=== PATIENT | male | born 1940 | race Caucasian/White ===

== ENCOUNTER 2018-05-25 12:29 | Inpatient (IN) | payer MEDICARE ==
[2018-05-25 13:30] LABS: #Lymphocytes 1.1 thou/uL (1.20-3.40); #Monocytes 0.7 thou/uL (0.11-0.59); #Neutrophils 7.8 thou/uL (1.40-6.50); %Basophils 0.2 % (0.0-1.0); %Eosinophils 0.3 % (0.0-10.0); %Lymphocytes 11.1 % (21.0-51.0); %Monocytes 7.1 % (0.0-10.0); %Neutrophils 81.3 % (42.0-75.0); Hemoglobin 13.1 g/dL (14.0-18.0); Mean Corpuscular HGB CONC 32.7 g/dL (32.0-36.0); Mean Corpuscular Volume 88.6 fL (78.0-98.0); Mean Platelet Volume 7.2 fL (7.4-10.4); Platelet Count 174 thou/uL (130-400); RBC Distribution Width 12.6 % (11.5-14.5); Red Blood Cell (RBC) Count 4.51 mill/uL (4.70-6.10); White Blood Cell (WBC) Count 9.6 thou/uL (4.8-10.8)
[2018-05-25 13:45] LABS: ALT (SGPT) 65 U/L (8-55); AST (SGOT) 29 U/L (5-34); Albumin 3.7 g/dL (3.4-4.8); Alkaline Phosphatase 119 U/L (40-150); Anion Gap 15 mmol/L (10-20); BUN (Urea Nitrogen) 30 mg/dL (8.4-25.7); Bilirubin, Total 1.3 mg/dL (0.2-1.2); CK (CPK) 46 U/L (30-200); Calc. Creatinine Clearance 0 mL/min (70-130); Calcium 8.5 mg/dL (7.8-10.44); Carbon Dioxide 19 mmol/L (23-31); Chloride 105 mmol/L (98-107); Estimated GFR-MDRD 50; Globulin 3.1 g/dL (2.4-3.5); Glucose 110 mg/dL (83-110); Potassium 4.4 mmol/L (3.5-5.1); Protein, Total 6.8 g/dL (5.8-8.1); Sodium 135 mmol/L (136-145)
[2018-05-25 13:49] LABS: CKMB 2.2 ng/mL (0-6.6); Troponin I 0.099 ng/mL (< 0.028)
[2018-05-25] MEDS ORDERED: Digoxin 0.5 MG/2 ML AMP ONE (14:10)
--- NOTE | 2018-05-25 14:21 | RAD ---
CHEST 1 VIEW: Date: 05/25/18 HISTORY: Chest pain. COMPARISON: Radiograph from 2006. FINDINGS: Heart size enlarged. No pneumothorax. No effusion. No acute osseous abnormality. Moderate degenerativ e changes of the shoulders. IMPRESSION: No acute intrathoracic abnormality. POS: LISBET
[2018-05-25 15:00] LABS: Magnesium 1.6 mg/dL (1.6-2.6); Phosphorus 3.8 mg/dL (2.3-4.7)
[2018-05-25] MEDS ORDERED: Diltiazem HCl 125 MG, Admixture Fee 1 EACH in Sodium Chloride 0.9% 100 ML IVPB SCH (15:30)
[2018-05-25] MEDS ORDERED: Ondansetron ODT 4 MG TAB PO PRN (15:37)
[2018-05-25] MEDS ORDERED: Nitroglycerin 0.4 MG TAB (25 Tab Bottle) PO PRN (15:37)
[2018-05-25] MEDS ORDERED: Senokot 8.6 MG TAB PO PRN (15:37)
[2018-05-25] MEDS ORDERED: Calcium Carbonate 500 MG ChewTAB PO PRN (15:37)
[2018-05-25] MEDS ORDERED: Ondansetron HCl/PF 4 MG/2 ML Vial IVP PRN (15:37)
[2018-05-25] MEDS ORDERED: Bisacodyl 10 MG SUPP PR PRN (15:37)
[2018-05-25] MEDS ORDERED: Acetaminophen 325 MG TAB PO PRN (15:37)
[2018-05-25] MEDS ORDERED: Enoxaparin Sodium 60 MG/0.6 ML SYRINGE ONE ×2 (15:39→15:45)
[2018-05-25] MEDS ORDERED: Sodium Chloride 0.9% 1,000 ML IV SCH (15:45)
[2018-05-25] MEDS ORDERED: Aspirin 325 MG TAB PO SCH (15:45)
--- NOTE | 2018-05-25 15:57 | HP ---
DATE OF ADMISSION: 05/25/2018 PRIMARY CARE PHYSICIAN: Mabel Tran M.D. PRIMARY EFFERVESCENT SALTS COMPOUNDER: None. CHIEF COMPLAINT: Generalized weakness with lightheadedness of 1 day duration. HISTORY OF PRESENT ILLNESS: Patient is a 78-year-old male with hypertension [facility] above complaints. Since yesterday, the patient has been feeling weak and dizzy. He is getting short of breath on mild exertion. The dizziness is mainly present when he stands up from the seated position. He denies any chest pain, palpitations, lightheadedness, dizziness, syncope or diaphoresis. Prior to the onset of the symptoms he was at baseline. No fever, chills, dysuria, hematuria, urgency, cough, shortness of breath, wheezing reported. His blood pressure per EMS was 91/64 after 250 mL normal saline bolus. His heart rate was 101 with r espiration of 18, and O2 saturation of 96% on room air in the ambulance. While in the emergency room, the patient developed atrial flutter with rapid ventricular response wit h heart rate in 130s. He received digoxin, 5 mg Cardizem with 500 mL of IV fluid. PAST MEDICAL HISTORY: 1. Hypertension. 2. Diabetes mellitus type 2. 3. Diabetic neuropathy. 4. Former smoker. PAST SURGICAL HISTORY: 1. Hernia repair. 2. Appendectomy. ALLERGIES: No known drug allergies. CURRENT HOME MEDICATIONS: The patient is unable to recall any of his home medications. According to pharmacy record, patient takes gabapentin 100 mg twice a day, lisinopril/HCTZ 10/12.5 daily. SOCIAL HISTORY: Patient currently lives alone at home. He ambulates with the help of his cane. He denies any history of falls. He is FULL CODE. The durable power of tax attorney is his nephew, Chito tom. He quit smoking many years ago and has approximately [id number] smoking history. He denie s any alcohol or drug use. FAMILY HISTORY: Negative for heart disease or malignancy. REVIEW OF SYSTEMS: The following complete review of systems was negative, unless otherwise mentioned in the HPI or below: Constitutional: Weight loss or gain, ability to conduct usual activities. Sk in: Rash, itching. Eyes: Double vision, pain. ENT/Mouth: Nose bleeding, neck stiffness, pain, te nderness. Cardiovascular: Palpitations, dyspnea on exertion, orthopnea. Respiratory: Shortness of breath, wheezing, cough, hemoptysis, fever or night sweats. Gastrointestinal: Poor appetite, abdom inal pain, heartburn, nausea, vomiting, constipation, or diarrhea. Genitourinary: Urgency, frequenc y, dysuria, nocturia. Musculoskeletal: Pain, swelling. Neurologic/Psychiatric: Anxiety, depressio n. Allergy/Immunologic: Skin rash, bleeding tendency. PHYSICAL EXAMINATION: VITAL SIGNS: In the emergency room showed a temperature 97.7 with pulse rate of 138, blood pressure 92/79, respiration of 18, O2 saturation 99% on room air. His lowest blood pressure was 84/68. GENERAL: A 78-year-old male appears elder than the stated age in no apparent distress, feels better after IV fluids. HEENT: Atraumatic, normocephalic. Sclerae are anicteric. Moist mucous membrane, no oral lesion. NECK: Supple, no JVD appreciated. No carotid bruit. LUNGS: Essentially clear to auscultation bilaterally with scattered bibasilar rales: No rhonchi or wheezing. No significant accessory muscle use. HEART: S1, S2 present, tachycardic, 2/6 systolic murmur over the mitral area. ABDOMEN: Soft, nontender, bowel sounds present. EXTREMITIES: No edema or calf tenderness. NEUROLOGIC: Grossly nonfocal, moves all four extremities. Power was 5/5 in all extremities. PERIPHERAL VASCULAR: Radial pulses palpable bilaterally. MUSCULOSKELETAL: No joint swelling or tenderness. PSYCHIATRIC: Alert, awake, oriented x3. SKIN: Warm and dry. LYMPH NODES: No palpable lymph nodes in the neck. LABORATORY AND X-RAY FINDINGS: CBC showed WBC 9.6 with hemoglobin 13.1, hematocrit 40, platelet coun t of 174. Chemistries showed sodium 135, potassium 4.4, chloride 105, bicarbonate 19, BUN 30, creati nine 1.39, glucose 110. Troponin of 0.099. BNP was 584. Magnesium, phosphorus, and lactic acid are in normal range. Chest x-ray by my review was negative for acute findings. EKG by my review showed atrial flutter wit h rapid ventricular response. IMPRESSION: 1. New onset atrial flutter with rapid ventricular response. 2. Weakness, dizziness, and exertional shortness of breath, probably secondary to #1. 3. Elevated BNP, rule out congestive heart failure. 4. Acute kidney injury on chronic kidney disease stage 2, probably secondary to hypotension. 5. Elevated troponins, probably secondary to demand ischemia. 6. Elevated total bilirubin, probably secondary to passive hepatic congestion. 7. Hypertension. 8. Diabetes mellitus type 2, diet controlled. 9. Mild metabolic acidosis, probably secondary to renal failure. 10. Hyponatremia. 11. Mild chronic normochromic normocytic anemia. PLAN: The patient will be monitored in the telemetry unit. He received a dose of digoxin. We will start him on low dose Cardizem drip. He also received 1 dose of Cardizem 5 mg IV push. We will star t him on anticoagulation. Risk not limited to life threatening bleeding from anticoagulation was dis cussed with the patient. He stated understanding. He ambulates with the help of the cane and denies any history of fall. No GI bleeding reported. We will consult Cardiology. Fall precautions. We w ill keep him n.p.o. past midnight. Plan of care was discussed with the patient in detail. He stated understanding. We will hold lisinopril/HCTZ. Resume gabapentin. We will start him on insulin slid ing scale.
[2018-05-25 16:27] VITALS: BMI 23.6
[2018-05-25 17:08] LABS: Troponin I 0.226 ng/mL (< 0.028)
[2018-05-25] MEDS: Enoxaparin Sodium 40 MG/0.4 ML SYRINGE SC SCH (17:13)
[2018-05-25] MEDS ORDERED: Digoxin 0.5 MG/2 ML AMP SLOW IVP SCH ×2 (18:15→23:59)
[2018-05-25 19:48] LABS: Troponin I 0.299 ng/mL (< 0.028)
[2018-05-25] MEDS: Famotidine 20 MG TAB PO SCH (21:18)
[2018-05-25] MEDS: Gabapentin 100 MG CAP PO SCH (21:18)
[2018-05-25] MEDS: Docusate 100 MG CAP PO SCH (21:26)
--- NOTE | 2018-05-26 00:47 | CON ---
DATE OF CONSULTATION: 05/25/2018 PRIMARY CARE PHYSICIAN: Mabel Tran MD PRIMARY ECOLOGIST: Mallika Juan MD REFERRING PHYSICIAN: Primitivo Rice MD REASON FOR CARDIOLOGY CONSULTATION: New onset of atrial flutter. HISTORY OF PRESENT ILLNESS: Mr. Lebron is a 78-year-old male with a significant history of hypertension, diabetes type 2, and diabetic neuropathy. This morning, when patient was outside, feeding his animal, he started feeling burning sensation all over his body and once he got inside the home, the symptoms improved. He did not have any cardiac-related symptoms during the episode; howev er, he was getting weaker with shortness of breath. He visited his nephew who happened to be his bret laughlin and his nephew called the EMS and he was transferred to the Emergency Department for further ev aluation and treatment. At the ER, the patient was found to have atrial fluttering with rapid ventri cular response with heart rate up to 130s with hypotension of 84/68. At this time, the patient is on diltiazem 2.5 mg an hour. The patient's heart rate is continuing to be atrial fluttering. Heart ra te of 75 with diltiazem 2.5 mg an hour with blood pressure 105/80. The patient continued to complain of weakness; however, he denies any burning sensation, dizziness, lightheadedness, near syncopal epi sode, or any other complaints at this moment. Prior to this admission, he never had a cardiac workup before. PAST MEDICAL HISTORY: 1. Hypertension. 2. Diabetes type 2. 3. Diabetic neuropathy. 4. Former smoker. He quit at the age of 25. PAST SURGICAL HISTORY: 1. Hernia repair. 2. Appendectomy. 3. Melanoma removed from left jehovah's witness in [place], [place]. ALLERGIES: No known drug allergies. HOME MEDICATIONS: Gabapentin 100 mg twice a day, potassium 10 mEq once a day, lisinopril/hydrochloro thiazide 10/12.5 one tablet once a day. FAMILY HISTORY: There is no significant cardiovascular history. SOCIAL HISTORY: The patient is a . The patient lives by himself. His nephew is his neighbor. He is an ex-smoker, quit at the age of 25. He denies ETOH or illicit drug abuse. REVIEW OF SYSTEMS: Twelve-point review of systems is negative, unless otherwise mentioned in HPI. H e denies any blood in the stool or urine. Denied constipation or diarrhea. He uses a cane for movem ent. He noticed intermittent mild edema to bilateral lower extremities. PHYSICAL EXAMINATION: VITAL SIGNS: Blood pressure 105/80; heart rate 75, atrial flutter; temperature 97.5; O2 sat 98% with room air; respiratory rate of 20. GENERAL: The patient is alert, oriented x4, not in acute distress. HEAD: Normocephalic, atraumatic. EYES: Extraocular muscle movement intact. ENT AND MOUTH: Oral and nasal mucosa are moist without lesion. NECK: Supple. No JVD. Normal range of motion. RESPIRATORY: Clear to auscultate bilaterally. No wheezing, rales, or rhonchi noted. CARDIOVASCULAR: Irregular. There are no S3 or S4. Carotid pulses are present without bruit or thri ll. Pulses are present in bilateral lower extremities except the left femoral arteries, which is 1+. No edema in the lower extremities. ABDOMEN: Soft, nontender to palpitation. Bowel sounds are present. EXTREMITIES: The patient is able to move all extremities; however, the patient's lower extremities a re very weak at this moment. SKIN: There is no skin rash, erythema, or laceration noted. PSYCHIATRIC: The patient is alert and oriented x4. LABORATORY DATA: WBC 9.6, hemoglobin 13.1, hematocrit 40, platelet 174. Sodium 135, potassium 4.4, BUN 30, creatinine 1.39. BNP is 583.9. Troponin is 0.099, 0.226. TSH is 1.1774. AST 29, ALT 65. The patient's chest x-ray revealed no acute intrathoracic abnormality. The patient's 12-lead EKG jameel ws atrial flutter. ASSESSMENT AND PLAN: 1. Atrial flutter with rapid ventricular response. The patient's heart rate is well controlled with diltiazem 2.5 mg per hour at this moment. The patient received 5 mg bolus of diltiazem in the ER pr ior to transfer to this floor. The patient's blood pressure is stable at this moment. We would like to continue current medication and we would like to order EP consult for atrial flutter management. 2. Elevated troponin level with possible demand ischemia from history of atrial flutter with rapid v entricular response. At this moment, the patient denied any cardiac complaints. We would like to co raul to monitor on the telemetry. 3. Chronic heart failure. The patient's BNP is slightly elevated today. Echocardiogram was ordered . The results are pending at this moment. The patient is stable with room air. There is no abdomin al distension or edema in the lower extremities. 4. Elevated creatinine level, possible from dehydration. We would like to continue to monitor. 5. History of hypertension. His blood pressure is stable at this moment with current medication. 6. Chronic back pain. Instructed to call for any help for movement. 7. History of diabetes type 2. Although, the patient has a history of diabetes type 2, the patient is not on any medication to control the patient's blood glucose. At this moment, the patient is stab le at this moment. We would like to defer to the primary care doctor. Thank you so much for allowing the Cardiology service to participate in this patient's care. We will follow along with patient care team and make further recommendations as appropriate.
--- NOTE | 2018-05-26 01:30 | CON ---
DATE OF CONSULTATION: 05/25/2018 CARDIOLOGY CONSULTATION INDICATION FOR CONSULTATION: This is a 78-year-old patient with new onset atrial fibrillation and flutter. HISTORY OF PRESENT ILLNESS: This is a very pleasant 78-year-old gentleman who has had no previous cardiac history that he is aware of, but does have a history of hypertension and diabetes, was out feeding his animals today, he felt somewhat diaphoretic and hot, he went back inside and was not feeling well. He cooled off and then had his nephew call 911. He was brought to the emergency room and was found to have atrial flutter with rapid ventricular response. He denied any chest pain. He has had no previous syncopal episodes and no previous history of palpitations of this degree. He was given IV diltiazem and 0.125 mg of digoxin in the emergency room. He still continues to have heart rate in the 130s and appears to be fibrillation and flutter. The emergency room evaluation on EKG showed atrial flutter, at this time appear to be somewhat more irregular. PAST MEDICAL HISTORY: Significant for an appendectomy. He has had abdominal hernia repair, which most likely was an incisional hernia after his appendectomy. He also has had some type of either brain cancer or bone cancer removed. He had the 6-hour surgery apparently done in [facility] and perhaps in the [facility], but he is uncertain whether or not it was actually his brain or the bones they are somewhat unusual. He does have a history also of hypertension and also diabetes, which he has been controlling by diet. SOCIAL HISTORY: He is a . He has 3 children with no heart disease. He stopped smoking in 1963, but over smoked for about 4 years. He has decreased activity. He denies alcohol use. FAMILY HISTORY: Noncontributory for anemia or early heart disease. ALLERGIES: None. MEDICATIONS: Prior to admission included lisinopril, potassium and either hydrochlorothiazide or Lasix. He was on some type of medicine he said for water pill. In the emergency room, he was given Lovenox, diltiazem and digoxin. REVIEW OF SYSTEMS: He wears glasses, has poor dentition, has some lower extremity swelling, which has been present for several years and has a history of peripheral neuropathy. Otherwise, 12-point review of systems is unremarkable except for what was noted in the history of present illness. PHYSICAL EXAMINATION: GENERAL: Reveals a well-developed, well-nourished, very pleasant gentleman. VITAL SIGNS: Blood pressure 125/82, heart rate is 131 beats per minute, severely tachycardic and is irregular. He is afebrile, respiratory rate is 20. HEENT: Shows head to be normocephalic and atraumatic. Carotid pulses are present without any bruits. CHEST: Clear to auscultation without rales, rhonchi or wheezing. CARDIOVASCULAR: Reveals a rapid rate, which appears to be irregular at this time. There were no gross murmurs noted. ABDOMEN: Soft and nontender. He has a well-healed midline incision after a hernia repair. There were no masses or tenderness noted. Femoral pulses are present. EXTREMITIES: Showed only mild lower extremity edema and ankle edema. Pedal pulses are present. NEUROLOGIC: He appears to be intact. IMAGING: His EKG from the emergency room as noted above shows atrial flutter with rapid ventricular response. LABORATORY DATA: His laboratory data shows a hemoglobin of 13.1, WBC is 9.6. His troponin I was 0.099, increased up to 0.226. His BNP was 586. His potassium was 4.4, sodium was 135. His blood sugar was 110, creatinine was 1.39. IMPRESSION: 1. Atrial flutter with rapid ventricular response, occasionally looks like atrial fibrillation, but most likely is atrial flutter. We will try to control the rate with IV diltiazem and IV digoxin and if he does not convert to sinus rhythm, he will need to be seen by the senior wealth advisor. We are uncertain as to exactly how long he has been in this irregular or rapid heart rate with the flutter, but he seems to have begun recently, at least he did not have any symptoms previous to this. He is not a very active person and pretty much stays at home and does not do much except go out and feed his animals when he needs to. We will also obtain an echocardiogram for evaluation of left atrial size and also left ventricular systolic function. 2. Hypertension. This is under good control at this time. It is actually in the low side, but it likely is due to the tachycardia. 3. Abnormal cardiac enzymes, which I suspect are due to the tachycardia associated with the atrial flutter. 4. History of diabetes, but appears to be well controlled by diet at this time. PLAN: Further care of the patient will be determined whether or not we are able to control the heart rate rather quickly and also the results of the echocardiogram. At some point in time, he may need to undergo stress testing, but there were no EKG changes noted that would indicate ischemia when he had the heart rate up to 130 beats per minute. MTDD
[2018-05-26] MEDS: Enoxaparin Sodium 40 MG/0.4 ML SYRINGE SC SCH (05:18)
[2018-05-26 06:27] LABS: Digoxin 1.87 ng/mL (0.8-2.0)
[2018-05-26 06:28] LABS: Anion Gap 17 mmol/L (10-20); BUN (Urea Nitrogen) 27 mg/dL (8.4-25.7); Calc. Creatinine Clearance 63 mL/min (70-130); Calcium 8.9 mg/dL (7.8-10.44); Carbon Dioxide 19 mmol/L (23-31); Chloride 105 mmol/L (98-107); Estimated GFR-MDRD 64; Glucose 88 mg/dL (83-110); Potassium 4.3 mmol/L (3.5-5.1); Sodium 137 mmol/L (136-145)
[2018-05-26 07:53] LABS: #Eosinphils 0.1 thou/uL (0.0-0.7); #Lymphocytes 1.8 thou/uL (1.20-3.40); #Monocytes 0.7 thou/uL (0.11-0.59); #Neutrophils 5.4 thou/uL (1.40-6.50); %Basophils 0.3 % (0.0-1.0); %Eosinophils 1.2 % (0.0-10.0); %Lymphocytes 22.5 % (21.0-51.0); %Monocytes 8.5 % (0.0-10.0); %Neutrophils 67.5 % (42.0-75.0); Hemoglobin 12.7 g/dL (14.0-18.0); Mean Corpuscular HGB CONC 32.7 g/dL (32.0-36.0); Mean Corpuscular Hemoglobin 28.5 pg (27.0-31.0); Mean Corpuscular Volume 87.2 fL (78.0-98.0); Mean Platelet Volume 7.3 fL (7.4-10.4); Platelet Count 174 thou/uL (130-400); RBC Distribution Width 12.4 % (11.5-14.5); Red Blood Cell (RBC) Count 4.46 mill/uL (4.70-6.10)
[2018-05-26] MEDS ORDERED: Digoxin 0.125 MG TAB PO SCH (09:00)
[2018-05-26] MEDS: Gabapentin 100 MG CAP PO SCH ×2 (10:43→20:32)
[2018-05-26] MEDS: Famotidine 20 MG TAB PO SCH ×2 (10:43→20:32)
[2018-05-26] MEDS: Docusate 100 MG CAP PO SCH ×2 (10:43→20:32)
[2018-05-26] MEDS: Multivit, Therapeutic 1 TAB PO SCH (10:43)
[2018-05-26] MEDS: Aspirin 325 MG TAB PO SCH (10:43)
[2018-05-26] MEDS: Digoxin 0.25 MG TAB PO SCH (10:44)
[2018-05-26] MEDS ORDERED: Iopamidol 370 76% 100 ML VIAL ONE (11:15)
[2018-05-26] MEDS ORDERED: Magnesium Sulfate 2 GM in Sodium Chloride 0.9% 100 ML IVPB SCH (12:15)
[2018-05-26] MEDS ORDERED: Amiodarone In Dextrose 200 ML IVPB SCH (12:15)
[2018-05-26] MEDS ORDERED: Sodium Chloride 0.9% 1,000 ML IV SCH (12:15)
[2018-05-26] MEDS ORDERED: Magnesium 2 GM/NS 0.9% 100 ML 2 GM in Premix Bag 1 BAG IVPB SCH (12:30)
[2018-05-26 12:38] LABS: Troponin I 0.273 ng/mL (< 0.028)
--- NOTE | 2018-05-26 12:39 | PDOC.CTH ---
<Stormy Horne - Last Filed: 05/26/18 12:36> Cardiology Progress Note - Subjective The pt seen and examined. During code green, the pt was alerted. After cardioversion, the pt's HR was converted back to SR/ST. - Objective Vital Signs Temp Pulse Pulse Pulse Pulse Resp BP 05/26/18 11:39 97.5 F L 84 20 05/26/18 11:20 80 121 H 115 H 136/70 05/26/18 10:44 76 05/26/18 07:54 97.5 F L 76 18 05/26/18 06:36 05/26/18 06:26 84 05/26/18 06:25 76 05/26/18 05:00 05/26/18 04:00 97.9 F 76 22 H BP BP BP BP BP BP Pulse Ox 05/26/18 11:39 103/61 92 L 05/26/18 11:20 93/61 112/71 05/26/18 10:44 05/26/18 07:54 97/62 94 L 05/26/18 06:36 95 05/26/18 06:26 90/59 L 05/26/18 06:25 83/64 L 05/26/18 05:00 79/60 L 90/59 L 83/64 L 05/26/18 04:00 77/55 L 93 L Weight 178 lb 9 oz 05/25/18 05/26/18 05/27/18 06:59 06:59 06:59 Intake Total 300 Balance 300 - Physical Examination General/Neuro: alert & oriented x3 Neck: no JVD present Lungs: CTA Heart: RRR (SR after dccv) Abdomen: soft Extremities: other: - Telemetry Telemetry Rhythm: After cardioversion, the pt's HR was converted back to SR/ST. - Labs Result Diagrams: 05/26/18 07:22 05/26/18 05:42 Troponin/CKMB CK-MB (CK-2) 2.2 ng/mL (0-6.6) 05/25/18 13:13 Troponin I 0.299 ng/mL (< 0.028) H 05/25/18 19:14 - Assessment/Plan 1. V tach with s/p DCCV on 05/26/18 - Cont. mildly hypotensive and receiving NS bolus. Cont. to monitor on tele. 2. Afib/Aflutter with RVR - plan for ablation; Lovenox 60mg subq BID. 3. HTN - stable * STAT Echo was done today for s/p V tach today. Review of Systems - Review of Systems Constitutional: reports: no symptoms reported EENTM: reports: no symptoms reported Respiratory: reports: no symptoms reported Cardiac (ROS): reports: no symptoms reported ABD/GI: reports: no symptoms reported : reports: no symptoms reported Musculoskeletal: reports: no symptoms reported <Urszula Juan - Last Filed: 05/26/18 17:35> Cardiology Progress Note - Objective Vital Signs Temp Pulse Pulse Pulse Pulse Pulse Pulse 05/26/18 16:00 97.7 F 05/26/18 11:49 135 H 106 H 103 H 05/26/18 11:39 97.5 F L 84 05/26/18 11:20 80 121 H 05/26/18 10:44 76 05/26/18 08:10 05/26/18 07:54 97.5 F L 76 05/26/18 06:36 05/26/18 06:26 84 05/26/18 06:25 76 Pulse Resp BP BP BP BP BP 05/26/18 16:00 05/26/18 11:49 63/40 L 82/67 L 82/58 L 05/26/18 11:39 20 05/26/18 11:20 115 H 136/70 93/61 05/26/18 10:44 05/26/18 08:10 05/26/18 07:54 18 05/26/18 06:36 05/26/18 06:26 05/26/18 06:25 BP BP BP Pulse Ox Pulse Ox 05/26/18 16:00 97 05/26/18 11:49 98 05/26/18 11:39 103/61 92 L 05/26/18 11:20 112/71 05/26/18 10:44 05/26/18 08:10 94 L 05/26/18 07:54 97/62 94 L 05/26/18 06:36 95 05/26/18 06:26 90/59 L 05/26/18 06:25 83/64 L Weight 178 lb 9 oz 05/25/18 05/26/18 05/27/18 06:59 06:59 06:59 Intake Total 300 191.6 Output Total 250 Balance 300 -58.4 - Labs Result Diagrams: 05/26/18 07:22 05/26/18 05:42 Troponin/CKMB CK-MB (CK-2) 2.2 ng/mL (0-6.6) 05/25/18 13:13 Troponin I 0.273 ng/mL (< 0.028) H 05/26/18 11:55 - Assessment/Plan pt. seen and eval. S/P Vtach and cardioversion today. Echo indicated severely dilated RV and RA. Nl. EF. Stat CTA indicated large pulmonary saddle embolus. Pt. transferred to CCU. prognosis is guarded. EP study will be put on hold. Further cardiac workup after treatment and stabilization og the massive PE.
--- NOTE | 2018-05-26 14:47 | CT ---
CT ANGIO OF CHEST PERFORMED WITH INTRAVENOUS CONTRAST ENHANCEMENT WITH 3D RECONSTRUCTIONS: 05/26/18 HISTORY: Patient severely short of breath. Code. The lungs are clear of any confluent infiltrative process. No pulmonary nodules or pleural effusions. The thoracic aorta is normal in caliber. There is a massive pulmonary embolus present. This is a saddle embolus and also has extensive embolus extending in both the upper and lower lobe pulmonary arteries. Pulmonary artery is slightly dilated at 3.4 cm. There is minimal bowing to the interventricular septum and some slight reflux into the IVC . The visualized liver parenchyma is normal. IMPRESSION: Massive saddle embolus. Findings telephoned to nurse Brit. In addition, Dr. Rice was informed of the se findings by Dr. Rehman.
[2018-05-26] MEDS ORDERED: Amiodarone HCl 150 MG, Admixture Fee 1 EACH in Dextrose 5% in Water 100 ML IVPB SCH (15:15)
[2018-05-26] MEDS: Amiodarone HCl 450 MG, Admixture Fee 1 EACH in Dextrose 5% in Water 250 ML IVPB SCH (15:28)
--- NOTE | 2018-05-26 18:42 | PRG ---
DATE OF SERVICE: 05/26/2018 This is an electrophysiology followup note for Neftaly Lebron REFERRING PHYSICIAN: Dr. Rice and Dr. Juan. SUBJECTIVE: Mr. Lebron seems to have done well by the morning. He actually converted back to sin us rhythm. His blood pressure and vital signs were stable mild overnight. Blood pressure decreased to the mid-70s were seen with diltiazem. Hence, the diltiazem drip had to be stopped in the morning. Later while on telemetry, he developed a wide complex tachycardia. Ramone rodriguez was called and hence ongoing hypertension, he emergently cardioverted back to sinus rhythm with a 50-joule shock. Subseq uently, no recurrent tachycardia was seen. A 2D echo was then evaluated and revealed a marked dilation of the right ventricle. This prompted a CT scan, which indeed revealed a saddle pulmonary embolism. He was transferred to the ICU. Currently, he remains in sinus rhythm. OBJECTIVE: VITAL SIGNS: 110/60, heart rate 80, respirations 12. The patient is afebrile. GENERAL: He is alert and oriented man, in no apparent distress. NECK: Supple. Jugular veins not distended. CHEST: Coarse without crackles. CARDIOVASCULAR: Heart sounds are regular to rate and rhythm. No murmur or gallop. ABDOMEN: Benign. Bowel sounds positive. EXTREMITIES: Lower extremities without edema, clubbing or cyanosis. DATABASE: The telemetry strips reviewed and EKGs as well. The morning EKG does reveal sinus rhythm with no significant ST-T changes. LABORATORY DATA: Reviewed. BNP of 1138. Troponin I 0.273, not markedly changed from before. White cell count is 8, hemoglobin 12.7, platelet count is 174. The CT scan reveals a massive saddle embol us, extensive emboli extending into the upper and lower pulmonary arteries. The telemetry strips again reviewed the episode of wide complex tachycardia, which initiated in sinus rhythm, not by PAC and a marked different morphology from baseline suggestive of possible ventricula r tachycardia. This rhythm was terminated by shock. The rates are about 120 beats per minute. ASSESSMENT AND PLAN: Mr. Lebron is a 78-year-old man with history of diabetes, hypertension, and some sort of hip surgery who presented with a newly found atrial flutter. Though, he developed hyper tension, sinus rhythm and also eventually developed a wide complex tachycardia consistent with ventricular tachycardia. A 2D echo and CT scan were suggestive of a massive right ventricular enlarg ement with compressing the left ventricular cavity and left atrium as well. CT scan also positive fo r large saddle embolus. We discussed the case with Dr. Rice as well as Dr. Candelaria, the chronic specialist. This gentlema n will need intervention regarding his large pulmonary embolism. Dr. Candelaria is planning tPA. We al so discussed the potential benefit from adequate suppression of his ventricular and atrial arrhythmia s. I think amiodarone is reasonable in this setting. For now, naturally ablation procedure. Plans will be canceled.
[2018-05-26] MEDS: Enoxaparin Sodium 80 MG/0.8 ML SYRINGE SC SCH (20:32)
--- NOTE | 2018-05-26 21:02 | CON ---
DATE OF CONSULTATION: 05/26/2018 SERVICE: Pulmonary Medicine. INTERVAL HISTORY: The patient is a 78-year-old white male with past medical history significant for atrial fibrillation/flutter. He was walking with physical therapy today when he had sudden onset of shortness of breath, hypoxic failure. He went into Vtach but spontaneously converted out of it, but then went into a sustained ventricular tachyarrhythmia. He did not require any chest compressions, but he did get one shock. He was loaded with amiodarone. He was subsequently moved to the ICU. Because of the abrupt change in his condition, he was appropriately sent down for a CT PE protocol, which demonstrated a pulmonary embolism with a massive clot burden, and right ventricular strain. The patient is currently comfortable. Denies any chest pain, nausea, vomiting, fevers or chills. Denies short of breath currently. He does not have any cough or any sputum production. Otherwise, we talked about possible code in the very near future. He suggested to me that if he dies he would be okay with it. He does not want any chest compressions, electricity, or intubation moving forward. He does understand that he has a treatable condition. That being said, he is not interested in very, very aggressive maneuvers. We talked about clot busting medications like TPA. We talked about the risks and benefits of having them including intracerebral hemorrhage, massive blood loss, which could result in . But after discussing the risks and benefits of these things, he has elected to proceed with the TPA. PAST MEDICAL HISTORY: 1. Type 2 diabetes mellitus. 2. Hypertension. 3. Diabetic neuropathy. 4. Atrial fibrillation/flutter. 5. Acute pulmonary embolism. PAST SURGICAL HISTORY: 1. Herniorrhaphy. 2. Appendectomy. ALLERGIES: No known drug allergies. MEDICATIONS: List of inpatient medications were reviewed. No updates were made. FAMILY HISTORY: Noncontributory. SOCIAL HISTORY: He has a previous history of smoking. He quit remotely. He denies any alcohol or illicit drugs. We have a conversation about code status. He is electing to be a DNI/DNR. REVIEW OF SYSTEMS: General, head, ears, eyes, nose, throat, cardiovascular, respiratory, GI, , musculoskeletal, neurologic, and skin is negative except mentioned in the HPI. PHYSICAL EXAMINATION: VITAL SIGNS: Afebrile, pulse 84, blood pressure 99/74, respirations 12, saturation 99% on 2 liters nasal cannula. GENERAL: The patient is awake and alert. No apparent distress. LUNGS: Decent air entry. There is no prolonged expiratory phase currently. There are no crackles present. HEART: Normal rate. Regular. ABDOMEN: Soft, nontender, nondistended. Bowel sounds are positive. MUSCULOSKELETAL: No cyanosis or clubbing. There is no pitting in the bilateral lower extremities. NEUROLOGIC: Grossly nonfocal. LABORATORY DATA: Basic metabolic profile is unremarkable. Liver function studies were previously unremarkable. BNP is up trending from 500-1100, troponin is gently down trending to 0.273. TSH falls within the normal limits. Magnesium and phosphorus are normal. Digoxin level is 1.8. Blood cultures x2 are unremarkable. IMAGING: CTA of the chest demonstrates evidence of minimal emphysematous changes. There is massive right-sided volume overload. The right ventricle and atrium is enlarged. There is significant contrast into the inferior vena cava. The left atrium appears to be underfilled. There is bowing of the septum from the right side of the heart into the left ventricle. I do not see any consolidating changes in the lungs. There is no significant mediastinal lymphadenopathy. ASSESSMENT: 1. Acute hypoxic respiratory failure. 2. Acute pulmonary embolism, submassive. 3. Ventricular tachycardia arrest, status post successful cardioversion without requirements of chest compression. 4. Acute right ventricular strain/failure. DISCUSSION AND PLAN: The patient got Lovenox at 5:00 this morning. We will hold his afternoon dose. We will start backup at 9:00 tonight. We will give him 2 hours infusion of TPA for his submassive pulmonary embolism. We did discuss the risk of pursuing a clot busting medication like TPA. He understands that he does have a risk of massive hemorrhage, or intracerebral hemorrhage, which could potentially catastrophic or cause . That being said, after a brief discussion about the risks and benefits of pursuing therapy , he is on board with taking that risk. At this point, he does not have any absolute contraindications to proceeding with TPA. His relative contraindication is his age. He remains in the ICU for now. 70 minutes have been devoted to this patient in various activities. I personally reviewed all imaging studies and laboratory data noted within this document. For fifty percent of this time, I was interacting with the patient at the bedside or coordinating care with the care team. For the remainder of the time I was immediately available to the patient in the hospital unit. ELIEZER
--- NOTE | 2018-05-26 22:32 | PDOC.PN ---
- Subjective Encounter Start Date: 05/26/18 Encounter Start Time: 13:00 Patient seen and examined for New onset A flutter. Code green called for Vent tachycardia.s/p CV with 50 J. in SR. - Objective Resuscitation Status: Resuscitation Status DNR:Do Not Resuscitate MAR Reviewed: Yes Vital Signs & Weight: Vital Signs (12 hours) Temp Pulse Pulse Pulse Pulse Pulse Pulse 05/26/18 19:00 98.6 F 05/26/18 16:00 97.7 F 05/26/18 11:49 135 H 106 H 103 H 05/26/18 11:39 97.5 F L 84 05/26/18 11:20 80 121 H 05/26/18 10:44 76 Pulse Resp BP BP BP BP BP 05/26/18 19:00 05/26/18 16:00 05/26/18 11:49 63/40 L 82/67 L 82/58 L 05/26/18 11:39 20 05/26/18 11:20 115 H 136/70 93/61 05/26/18 10:44 BP BP Pulse Ox Pulse Ox 05/26/18 19:00 05/26/18 16:00 97 05/26/18 11:49 98 05/26/18 11:39 103/61 92 L 05/26/18 11:20 112/71 05/26/18 10:44 Weight Weight 178 lb 9 oz Most Recent Monitor Data Heart Rate from ECG 65 NIBP 117/60 NIBP BP-Mean 79 Respiration from ECG 21 SpO2 97 I&O: 05/25/18 05/26/18 05/27/18 06:59 06:59 06:59 Intake Total 300 548.6 Output Total 1000 Balance 300 -451.4 Result Diagrams: 05/26/18 07:22 05/26/18 05:42 Additional Labs: Accuchecks 05/26/18 11:51 POC Glucose 110 EKG Reviewed by me: Yes (Tele SR) Phys Exam - Physical Examination Constitutional: NAD Neck: no JVD Respiratory: no wheezing, no rales, no rhonchi, clear to auscultation bilateral Cardiovascular: RRR, no rub No heaves/pulsations Gastrointestinal: soft, non-tender, no distention, positive bowel sounds Musculoskeletal: no edema Neurological: moves all 4 limbs Dx/Plan - Plan DVT proph w/SCDs IMPRESSION: 1. B/L PE with Rt sided strain 1. New onset atrial flutter with rapid ventricular response. 2. Ventricular tachycardia s/p CV 3. Gen weakness - multifactorial 4. Acute kidney injury on chronic kidney disease stage 2, probably secondary to hypotension. 5. Elevated troponins, probably secondary to demand ischemia. 6. Elevated total bilirubin, probably secondary to passive hepatic congestion. 7. Hypertension. 8. Diabetes mellitus type 2, diet controlled. 9. Mild metabolic acidosis, probably secondary to renal failure. 10. Hyponatremia. 11. Mild chronic normochromic normocytic anemia. 12. Hypomagnesemia PLAN: IV TPA Transfer to CCU Consult Critical care Resume Lovenox in AM AM labs Cardio/EP following Cont Digoxin 2 gm Mag Start Amiodarone IV NS bolus for hypotension B/L LE Doppler to r/o DVT Hold PT/OT Review of Systems - Review of Systems Respiratory: negative: Cough, Dry, Shortness of Breath, Hemoptysis, SOB with Excertion, Pleuritic Pain, Sputum, Wheezing Cardiovascular: negative: chest pain, palpitations, orthopnea, paroxysmal nocturnal dyspnea, edema, light headedness, other - Medications/Allergies Allergies/Adverse Reactions: Allergies Allergy/AdvReac Type Severity Reaction Status Date / Time No Known Drug Allergies Allergy Verified 05/25/18 16:35 Medications: Current Medications Acetaminophen (Tylenol) 650 mg PO Q4H PRN PRN Reason: Headache/Fever or Pain Aspirin (Aspirin) 325 mg PO DAILY [facility] Last Admin: 05/26/18 10:43 Dose: 325 mg Bisacodyl (Dulcolax) 10 mg NV Q24H PRN PRN Reason: Constipation Calcium Carbonate (Tums) 1,000 mg PO Q4H PRN PRN Reason: Heartburn or Indigestion Digoxin (Lanoxin) 0.25 mg PO QAM [facility] Last Admin: 05/26/18 10:44 Dose: Not Given Docusate Sodium (Colace) 100 mg PO BID [facility] Last Admin: 05/26/18 20:32 Dose: 100 mg Enoxaparin Sodium (Lovenox) 80 mg SC 0900,2100 [facility] Last Admin: 05/26/18 20:32 Dose: 80 mg Famotidine (Pepcid) 20 mg PO BID [facility] Last Admin: 05/26/18 20:32 Dose: 20 mg Gabapentin (Neurontin) 100 mg PO BID [facility] Last Admin: 05/26/18 20:32 Dose: 100 mg Amiodarone HCl 450 mg/Miscellaneous Medication 1 each/ Dextrose/Water 259 mls @ 0 mls/hr IVPB INF [facility]; Protocol Last Admin: 05/26/18 15:28 Dose: 259 mls Multivitamins (Theragran) 1 tab PO DAILY [facility] Last Admin: 05/26/18 10:43 Dose: 1 tab Nitroglycerin (Nitrostat) 0.4 mg PO Q5MIN PRN PRN Reason: Chest Pain Ondansetron HCl (Zofran Odt) 4 mg PO Q6H PRN PRN Reason: Nausea/Vomiting Ondansetron HCl (Zofran) 4 mg IVP Q6H PRN PRN Reason: Nausea/Vomiting Senna (Senokot) 2 tab PO HSPRN PRN PRN Reason: Constipation Sodium Chloride (Flush - Normal Saline) 10 ml IVF PRN PRN PRN Reason: Saline Flush
--- NOTE | 2018-05-26 23:54 | CON ---
DATE OF CONSULTATION: 05/25/2018 ELECTROPHYSIOLOGY CONSULTATION REPORT REFERRING PHYSICIAN: Dr. Rice and Dr. Juan. I am seeing Mr. Lebron at our [facility] telemetry floor as an electrophysiology consulta nt. His problems are: 1. Newly found atrial flutter with rapid ventricular rates. 2. Elevated BNP, possible congestive heart failure. 3. Elevated troponins, possibly secondary to demand ischemia. 4. Hepatic congestion, elevated LFTs and bilirubin. 5. Risk factors including hypertension and diabetes. ALLERGIES: None noted. MEDICATIONS AT HOME: Included gabapentin, lisinopril to a limited report. SUBJECTIVE: Mr. Lebron is somewhat of a poor historian. He is here with feeling dizzy, lighthead ed with minimal exertion. He has no chest pains, denies palpitations. Does not pass out. No fever, chills, or cough. No bleeding issues or stroke-like symptoms are documented. REVIEW OF SYSTEMS: The rest of 12-point system otherwise unremarkable. PAST SURGICAL HISTORY: Significant for appendectomy; abdominal hernia repair; surgery in the p ast, details unclear, back in 2003 and it was done in [place]; history of diabetes and hypertensi on, controlled by diet. SOCIAL HISTORY: He is a , has 3 children with no heart disease, stopped smoking in 1963, smok ed about 4 years. He is somewhat limited in his activity. Denies drug use. FAMILY HISTORY: Noncontributory. OBJECTIVE DATA: VITAL SIGNS: Blood pressure is 125/82, heart rate 131, respirations 20, temperature 97.5 degrees Fah renheit. GENERAL: He is alert and oriented man x3, in no apparent distress. NECK: Supple. Jugular veins not distended. CHEST: Coarse without crackles. CARDIOVASCULAR: Heart sounds are regular to rate and rhythm. No murmur or gallop. ABDOMEN: Benign. Bowel sounds positive. EXTREMITIES: Lower extremities without edema, clubbing or cyanosis. Pulses are adequate. MUSCULOSKELETAL: No joint swelling or deformities. SKIN: Without rash. DATABASE: The initial EKG reveals atrial flutter with rapid rates at 130 beats per minute. It appea rs to be typical isthmus-dependent in morphology. LABORATORY DATA: White cell count is 9.6, hemoglobin 13.1, platelet count is 174. Sodium 135, potas sium 4.4, BUN is 30, creatinine 1.39. AST and ALT are 29 and 65. The bilirubin is 1.3. Troponin wa s 0.099 initially, followed by 0.226, 0.299, and 0.273. The chest x-ray shows no acute intrathoracic abnormality. ASSESSMENT AND PLAN: Mr. Lebron is a 78-year-old man without much cardiac history that he can rem ember. He has presented with atrial flutter, which appears to be typical isthmus-dependent in morpho logy. Dr. Juan has already evaluated the patient and plans to do an echocardiogram to evaluate his c ardiac structures. Diltiazem initiated as well as digoxin for rate control. Anticoagulation would b e a reasonable to start with Lovenox, which was administered. I discussed the finding of atrial flutter with him. I detailed to him the mechanism of atrial flutte r and potential benefit from evaluating it. Cardioversion versus ablation options were discussed tow ards ablation procedure. If persisting atrial flutter, JANIYA prior to the ablation could be considered . he has not been on anticoagulation prior, we will obtain the 2D echo results though prior. Thank you again for allowing me to participate in the care of this patient.
[2018-05-27] MEDS: Amiodarone HCl 450 MG, Admixture Fee 1 EACH in Dextrose 5% in Water 250 ML IVPB SCH (00:30)
[2018-05-27] MEDS: Aspirin 325 MG TAB PO SCH (09:38)
[2018-05-27] MEDS: Famotidine 20 MG TAB PO SCH ×2 (09:39→19:57)
[2018-05-27] MEDS: Docusate 100 MG CAP PO SCH ×2 (09:39→19:58)
[2018-05-27] MEDS: Enoxaparin Sodium 80 MG/0.8 ML SYRINGE SC SCH ×2 (09:39→19:58)
[2018-05-27] MEDS: Digoxin 0.25 MG TAB PO SCH (09:39)
[2018-05-27] MEDS: Multivit, Therapeutic 1 TAB PO SCH (09:40)
[2018-05-27] MEDS: Gabapentin 100 MG CAP PO SCH ×2 (09:40→19:57)
--- NOTE | 2018-05-27 10:51 | ULT ---
BILATERAL LOWER EXTREMITY VENOUS DOPPLER ULTRASOUND EVALUATION: HISTORY: A 8-year-old who presents with a history of pulmonary emboli. Evaluate lower extremities for etiolog y of thrombus. FINDINGS: Multiple longitudinal and transverse images of both lower extremity venous systems are obtained using a multihertz linear ray transducer. Real-time, color flow, and spectral waveform analysis demonstra alejandra no evidence of acute or old clot seen in the left common femoral vein, superior vena cava, femora l profunda, popliteal vein, posterior tibial vein, post trifurcation veins, and left greater saphenou s vein. RIGHT LOWER EXTREMITY: No evidence of acute or old clot seen in the right common femoral vein. The mid and distal right sup erficial femoral vein contain some echogenic material compatible with clot. There is also some super ficial venous wall thickening compatible with phlebitis. Flow is seen in the right posterior tibial vein, greater saphenous vein, and femoral profunda. There is also extensive clot in the right poplit eal vein. IMPRESSION: Partial thrombosis of the mid and distal right superficial femoral vein and complete occlusion of the right popliteal vein. Flow is seen in the post trifurcation veins and right greater saphenous vein. POS: [facility]
--- NOTE | 2018-05-27 11:22 | PRG ---
DATE OF SERVICE: 05/27/2018 SERVICE: Pulmonary Medicine INTERVAL HISTORY: The patient is doing outstanding from a respiratory standpoint. There have been n o complications associated with the t-PA that was administered yesterday. He denies any chest pain, nausea, vomiting, fevers, chills, shortness of breath. He is back on room air. His blood pressures are much improved, and his heart rate has settled down beautifully. PHYSICAL EXAMINATION: VITAL SIGNS: Afebrile, pulse 84, blood pressure 125/72, respirations 23, saturation 100% on room air . GENERAL: The patient is awake, alert, in no apparent distress. LUNGS: Excellent air entry with no prolonged expiratory phase or wheezing present. HEART: Normal rate, regular. ABDOMEN: Soft, nontender, nondistended. Bowel sounds are positive. MUSCULOSKELETAL: No cyanosis or clubbing. There is no pitting in the bilateral lower extremities. NEUROLOGIC: Grossly nonfocal. IMAGING: Ultrasound of bilateral lower extremities demonstrates partial thrombosis of the mid and ri ght distal superficial femoral vein and complete occlusion of the right popliteal vein. ASSESSMENT: 1. Acute hypoxic respiratory failure, resolved. 2. Acute pulmonary embolism, submassive, status post t-PA. 3. Ventricular tachycardia with successful defibrillation and never requiring chest compressions. 4. Right ventricular heart failure. DISCUSSION AND PLAN: I will repeat an echocardiogram. This will be a limited study just to evaluate the right-sided heart function. The patient is not a candidate for a filter at this time as the hea rt strain is likely resolved. We will repeat a BNP and troponin tomorrow morning. The patient has r eturned to normal sinus rhythm, so we will talk to EP about whether or not the digoxin is still indic ated. At 4 o'clock this evening, he can be transitioned to the telemetry unit.
--- NOTE | 2018-05-27 13:55 | PDOC.CTH ---
Cardiology Progress Note - Subjective EP progress note: Patient sitting in chair, feels well. No heart racing, palpitation, chest pain/ pressure, dizziness, or passing out. C/O bruising on arms. - Objective Vital Signs Temp Pulse Pulse Ox 05/27/18 12:00 98.7 F 05/27/18 09:39 84 05/27/18 08:17 99 05/27/18 08:00 97.7 F 100 05/27/18 03:00 98 F Weight 178 lb 9 oz 05/26/18 05/27/18 05/28/18 06:59 06:59 06:59 Intake Total 300 904.6 720 Output Total 1650 350 Balance 300 -745.4 370 - Physical Examination General/Neuro: alert & oriented x3, NAD Neck: carotid US brisk, no JVD present Lungs: CTA, unlabored respirations Heart: PMI normal, RRR Abdomen: NT/ND, soft - Telemetry Telemetry Rhythm: SR - Labs Result Diagrams: 05/26/18 07:22 05/26/18 05:42 Troponin/CKMB CK-MB (CK-2) 2.2 ng/mL (0-6.6) 05/25/18 13:13 Troponin I 0.273 ng/mL (< 0.028) H 05/26/18 11:55 - Assessment/Plan 1. Atrial flutter 2. Monomorphic ventricular tachycardia, term with 50J defib. 3. Pulmonary embolus, saddle: received TPA 4. Right ventricular heart failure 5. oral anticoagulation- continue therapeutic lovenox. Will need termite treater anticoagulation for AF Remains on amiodarone gtt and maintains SR without recurrent VT. Newly found atrial arrhythmias likely provoked by PE. Will transition to PO amiodarone 200mg BID once IV gtt is completed. 200mg BID x 2 weeks then 200mg daily. Recommend continued amiodarone x 2-3 months while acute issues resolve then wean off and address AF. Will re-evaluate on wednesday.
--- NOTE | 2018-05-27 15:12 | PDOC.CTH ---
<Stormy Horne - Last Filed: 05/27/18 15:10> Cardiology Progress Note - Subjective The pt seen and examined. No overnight events. No cardiac complaints. S/p massive PE with TPA on 05/26/18. - Objective Vital Signs Temp Pulse Pulse Ox 05/27/18 12:00 98.7 F 05/27/18 09:39 84 05/27/18 08:17 99 05/27/18 08:00 97.7 F 100 Weight 178 lb 9 oz 05/26/18 05/27/18 05/28/18 06:59 06:59 06:59 Intake Total 300 904.6 720 Output Total 1650 350 Balance 300 -745.4 370 - Physical Examination General/Neuro: alert & oriented x3 Neck: no JVD present Lungs: other: (diminished at bases) Heart: RRR Abdomen: soft Extremities: other: (No edema) - Telemetry Telemetry Rhythm: SR - Labs Result Diagrams: 05/26/18 07:22 05/26/18 05:42 Troponin/CKMB CK-MB (CK-2) 2.2 ng/mL (0-6.6) 05/25/18 13:13 Troponin I 0.273 ng/mL (< 0.028) H 05/26/18 11:55 - Assessment/Plan 1. V tach with s/p DCCV on 05/26/18 - On Amiodarone drip which will be changed to PO 200mg BID for 2 wks then change to qd for 3-4 months. Cont. to monitor on tele. 2. Pulm, embolus with s/p TPA on 05/26/18 - stable with Lovenox. 3. Afib/Aflutter with RVR - plan for ablation; Lovenox 80 mg subq BID and ASA 325mg. On Amiodarone. Possible Ablation in future as outpt. 4. HTN - stable 5. Severe RV dilation - stable MAR reviewed Review of Systems - Review of Systems Constitutional: reports: no symptoms reported EENTM: reports: no symptoms reported Respiratory: reports: no symptoms reported Cardiac (ROS): reports: no symptoms reported ABD/GI: reports: no symptoms reported : reports: no symptoms reported Musculoskeletal: reports: no symptoms reported Skin: reports: no symptoms reported <Urszula Juan - Last Filed: 05/27/18 19:52> Cardiology Progress Note - Objective Vital Signs Temp Pulse Pulse Ox 05/27/18 16:00 97.6 F 05/27/18 12:00 98.7 F 05/27/18 09:39 84 05/27/18 08:17 99 05/27/18 08:00 97.7 F 100 Weight 178 lb 9 oz 05/26/18 05/27/18 05/28/18 06:59 06:59 06:59 Intake Total 300 904.6 1200 Output Total 1650 350 Balance 300 -745.4 850 - Labs Result Diagrams: 05/27/18 17:22 05/27/18 17:22 Troponin/CKMB CK-MB (CK-2) 2.2 ng/mL (0-6.6) 05/25/18 13:13 Troponin I 0.273 ng/mL (< 0.028) H 05/26/18 11:55 - Assessment/Plan Pt. seen and eval. by me. I agree with the A/P by the [facility]. Pt. was also seen by EP for the atrial flutter that he originally had which may quite likely have been due to the PE. This became acutely worse yesterday before being diagnosed and the pt. recieved thrombolytic therapy. He has been stable today and denies complaints. Chest clear. RRR.
[2018-05-27 17:29] LABS: #Eosinphils 0.2 thou/uL (0.0-0.7); #Lymphocytes 1.6 thou/uL (1.20-3.40); #Monocytes 0.7 thou/uL (0.11-0.59); #Neutrophils 5.1 thou/uL (1.40-6.50); %Basophils 0.4 % (0.0-1.0); %Eosinophils 2.7 % (0.0-10.0); %Lymphocytes 21.2 % (21.0-51.0); %Monocytes 8.6 % (0.0-10.0); Hemoglobin 12.8 g/dL (14.0-18.0); Mean Corpuscular HGB CONC 32.6 g/dL (32.0-36.0); Mean Corpuscular Hemoglobin 28.4 pg (27.0-31.0); Mean Corpuscular Volume 87.2 fL (78.0-98.0); Mean Platelet Volume 6.7 fL (7.4-10.4); Platelet Count 187 thou/uL (130-400); RBC Distribution Width 12.4 % (11.5-14.5); White Blood Cell (WBC) Count 7.6 thou/uL (4.8-10.8)
[2018-05-27 18:11] LABS: ALT (SGPT) 41 U/L (8-55); AST (SGOT) 23 U/L (5-34); Albumin 3.7 g/dL (3.4-4.8); Alkaline Phosphatase 115 U/L (40-150); Anion Gap 13 mmol/L (10-20); BUN (Urea Nitrogen) 28 mg/dL (8.4-25.7); Bilirubin, Total 0.8 mg/dL (0.2-1.2); Calc. Creatinine Clearance 70 mL/min (70-130); Calcium 8.7 mg/dL (7.8-10.44); Carbon Dioxide 23 mmol/L (23-31); Chloride 103 mmol/L (98-107); Estimated GFR-MDRD 72; Globulin 2.8 g/dL (2.4-3.5); Glucose 97 mg/dL (83-110); Phosphorus 2.3 mg/dL (2.3-4.7); Potassium 3.4 mmol/L (3.5-5.1); Protein, Total 6.5 g/dL (5.8-8.1); Sodium 136 mmol/L (136-145)
[2018-05-27] MEDS ORDERED: Potassium Chloride 20 MEQ TAB PO SCH (19:00)
--- NOTE | 2018-05-27 19:09 | PRG ---
DATE OF SERVICE: 05/27/2018 SUMMARY: Patient is a 78-year-old male with hypertension, diabetes mellitus type 2, and former smoke r, presented to the hospital with generalized weakness and lightheadedness of 1 day duration. His wo rkup in the emergency room was consistent with new onset of atrial flutter with rapid ventricular res ponse. He was started on Cardizem drip as well as digoxin. He was admitted to the telemetry unit. The patient underwent a code green next day after working with physical therapy. He was found to hav e ventricular tachycardia requiring 50 joules of cardioversion. A stat echocardiogram was done that showed severely enlarged right ventricle. A CT angiogram of the chest stat was consistent with subma ssive pulmonary embolism with cor pulmonale requiring TPA. He received TPA on 05/26/2018 in the CCU. Venogram of the lower extremity was consistent with DVT. SUBJECTIVE: The patient denies any new complaints, feels better. No chest pain, shortness of breath , palpitations. No new weakness, numbness, headache reported. OBJECTIVE: VITAL SIGNS: Blood pressure 140/83 with pulse rate of 55, O2 saturation 100%. Patient is afebrile. GENERAL: A 78-year-old male sitting on the chair, in no apparent distress, no chest pain, shortness of breath. NECK: Supple, no JVD. LUNGS: Lungs clear to auscultation bilaterally with scattered rhonchi. HEART: S1, S2 present. Regular rate and rhythm. No rubs or gallops. ABDOMEN: Soft. EXTREMITIES: No edema or calf tenderness. LABORATORY FINDINGS: Potassium 3.4 with BUN 28, creatinine 1.01. WBC 7.6 with hemoglobin 12.6. Dig oxin level yesterday was 1.87. Blood cultures negative. Telemetry monitoring by my review showed sinus rhythm. Bilateral lower extremity Doppler was consist ent with DVT. IMPRESSION: 1. New onset atrial flutter with rapid ventricular response on admission. Patient is in sinus rhyth m. We will continue amiodarone. We will discontinue digoxin per Dr. Juan. The patient is already o n anticoagulation. 2. Submassive pulmonary embolism with cor pulmonale and deep vein thrombosis. We will continue Love nox. 3. Hypokalemia. We will replace potassium. Recheck labs in a.m. 4. Acute kidney injury on chronic kidney disease stage 2, improved. 5. Elevated troponins secondary to pulmonary embolism/demand ischemia. 6. Diabetes mellitus type 2. We will continue sliding scale. 7. Hypertension. We will continue to monitor. 8. Diabetic neuropathy. Continue gabapentin. 9. Activity: Chair with assistance. We will hold physical therapy for now.
[2018-05-27] MEDS: Amiodarone 200 MG TAB PO SCH (19:57)
[2018-05-28 06:01] LABS: #Eosinphils 0.3 thou/uL (0.0-0.7); #Lymphocytes 1.3 thou/uL (1.20-3.40); #Monocytes 0.6 thou/uL (0.11-0.59); #Neutrophils 4.8 thou/uL (1.40-6.50); %Basophils 0.2 % (0.0-1.0); %Lymphocytes 18.4 % (21.0-51.0); %Neutrophils 68.4 % (42.0-75.0); Mean Corpuscular HGB CONC 32.5 g/dL (32.0-36.0); Mean Corpuscular Hemoglobin 28.3 pg (27.0-31.0); Mean Corpuscular Volume 87.1 fL (78.0-98.0); Mean Platelet Volume 7.2 fL (7.4-10.4); Platelet Count 212 thou/uL (130-400); RBC Distribution Width 12.5 % (11.5-14.5); Red Blood Cell (RBC) Count 4.23 mill/uL (4.70-6.10)
[2018-05-28 06:14] LABS: ALT (SGPT) 37 U/L (8-55); AST (SGOT) 22 U/L (5-34); Albumin 3.4 g/dL (3.4-4.8); Alkaline Phosphatase 108 U/L (40-150); Anion Gap 9 mmol/L (10-20); BUN (Urea Nitrogen) 21 mg/dL (8.4-25.7); Bilirubin, Total 0.6 mg/dL (0.2-1.2); Calc. Creatinine Clearance 79 mL/min (70-130); Calcium 8.5 mg/dL (7.8-10.44); Carbon Dioxide 26 mmol/L (23-31); Chloride 106 mmol/L (98-107); Estimated GFR-MDRD 82; Globulin 2.6 g/dL (2.4-3.5); Glucose 95 mg/dL (83-110); Sodium 137 mmol/L (136-145)
[2018-05-28] MEDS: Aspirin 81 mg Enteric Coated Tablet PO SCH (09:08)
[2018-05-28] MEDS: Amiodarone 200 MG TAB PO SCH ×2 (09:08→20:00)
[2018-05-28] MEDS: Enoxaparin Sodium 80 MG/0.8 ML SYRINGE SC SCH ×2 (09:08→20:01)
[2018-05-28] MEDS: Famotidine 20 MG TAB PO SCH ×2 (09:08→20:00)
[2018-05-28] MEDS: Gabapentin 100 MG CAP PO SCH ×2 (09:08→20:00)
[2018-05-28] MEDS: Docusate 100 MG CAP PO SCH ×2 (09:08→20:00)
[2018-05-28] MEDS: Multivit, Therapeutic 1 TAB PO SCH (09:08)
--- NOTE | 2018-05-28 09:44 | PDOC.CTH ---
<Mindy Voss - Last Filed: 05/28/18 09:42> Cardiology Progress Note - Subjective No complaints. Up to chair. - Objective Vital Signs Temp Pulse Resp BP Pulse Ox 05/28/18 08:20 97.9 F 70 20 135/75 05/28/18 05:28 92 L 05/28/18 04:00 98.0 F 65 16 124/72 96 Weight 178 lb 4 oz 05/27/18 05/28/18 05/29/18 06:59 06:59 06:59 Intake Total 904.6 1440 Output Total 1650 1375 Balance -745.4 65 - Physical Examination General/Neuro: alert & oriented x3 Neck: no JVD present Lungs: CTA Heart: other: (IRR) Extremities: other: (+1 edema) - Telemetry Telemetry Rhythm: SR - Labs Result Diagrams: 05/28/18 05:16 05/28/18 05:16 Troponin/CKMB CK-MB (CK-2) 2.2 ng/mL (0-6.6) 05/25/18 13:13 Troponin I 0.273 ng/mL (< 0.028) H 05/26/18 11:55 - Assessment/Plan 1. s/p PE and TPA 2. Sustained VT s/p DCCV 05/26. 3. AFlutter with RVR 4. HTN Continue current meds including ASA, Lovenox and Amio. Plan for RFA Wednesday. <Familia Estrada - Last Filed: 05/28/18 14:14> Cardiology Progress Note - Objective Vital Signs Temp Pulse Resp BP Pulse Ox 05/28/18 08:20 97.9 F 70 20 135/75 05/28/18 05:28 92 L 05/28/18 04:00 98.0 F 65 16 124/72 96 Weight 178 lb 4 oz 05/27/18 05/28/18 05/29/18 06:59 06:59 06:59 Intake Total 904.6 1440 Output Total 1650 1375 Balance -745.4 65 - Labs Result Diagrams: 05/28/18 05:16 05/28/18 05:16 Troponin/CKMB CK-MB (CK-2) 2.2 ng/mL (0-6.6) 05/25/18 13:13 Troponin I 0.273 ng/mL (< 0.028) H 05/26/18 11:55 - Assessment/Plan Pt seen and examined. Agree with above.
--- NOTE | 2018-05-28 10:28 | PDOC.PN ---
- Subjective Encounter Start Date: 05/28/18 Encounter Start Time: 10:27 Mr. Montes De Oca was seen today in follow-up of Atrial flutter, and PE. His main concern is that he can't walk like he used to, and his legs get heavy. He denies any chest pain or trouble breathing. - Objective Resuscitation Status: Resuscitation Status DNR:Do Not Resuscitate MAR Reviewed: Yes Vital Signs & Weight: Vital Signs (12 hours) Temp Pulse Resp BP Pulse Ox 05/28/18 08:20 97.9 F 70 20 135/75 05/28/18 05:28 92 L 05/28/18 04:00 98.0 F 65 16 124/72 96 Weight Weight 178 lb 4 oz Most Recent Monitor Data Heart Rate from ECG 55 NIBP 140/83 NIBP BP-Mean 102 Respiration from ECG 17 SpO2 100 I&O: 05/27/18 05/28/18 05/29/18 06:59 06:59 06:59 Intake Total 904.6 1440 Output Total 1650 1375 Balance -745.4 65 Result Diagrams: 05/28/18 05:16 05/28/18 05:16 Phys Exam - Physical Examination HEENT: PERRLA Respiratory: no wheezing, no rales, no rhonchi, clear to auscultation bilateral Cardiovascular: RRR, no significant murmur, no rub Gastrointestinal: soft, non-tender, no distention, positive bowel sounds Musculoskeletal: pulses present, edema present trace pedal edema Dx/Plan (1) Atrial flutter Code(s): I48.92 - UNSPECIFIED ATRIAL FLUTTER Status: Acute (2) Acute saddle pulmonary embolism Code(s): I26.92 - SADDLE EMBOLUS OF PULMONARY ARTERY W/O ACUTE COR PULMONALE Status: Acute (3) Deep vein thrombosis, lower right extremity Code(s): I82.401 - ACUTE EMBOLISM AND THOMBOS UNSP DEEP VEINS OF R LOW EXTREM Status: Acute (4) Hypertension Code(s): I10 - ESSENTIAL (PRIMARY) HYPERTENSION Status: Chronic (5) Diabetes mellitus type 2 in nonobese Code(s): E11.9 - TYPE 2 DIABETES MELLITUS WITHOUT COMPLICATIONS Status: Chronic (6) Physical deconditioning Code(s): R53.81 - OTHER MALAISE Status: Acute - Plan * Atrial flutter- his heart rate is controlled on Amiodarone. He is already on anticoagulation with Lovenox. Plan is for RFA on Wednesday * Pulmonary Embolus- he is s/p TPA for this, and now on Lovenox * HTN- blood pressure is stable * DM- blood glucose is stable * Deconditioning- continue PT/OT.
--- NOTE | 2018-05-28 12:26 | EKG ---
Test Reason : RAPIDHR Blood Pressure : / mmHG Vent. Rate : 137 BPM Atrial Rate : 137 BPM P-R Int : 140 ms QRS Dur : 138 ms QT Int : 286 ms P-R-T Axes : 000 -15 -17 degrees QTc Int : 431 ms Atrial flutter with 2 to [address]-T wave changes Confirmed by LINO JACK ([id number]), index editor BALDEMAR ARIAS ([id number]) on 05/28/2018 12:26:29 PM Referred By: MARCIE Confirmed By:LINO JACK
--- NOTE | 2018-05-28 12:26 | EKG ---
Test Reason : Blood Pressure : / mmHG Vent. Rate : 130 BPM Atrial Rate : 260 BPM P-R Int : 000 ms QRS Dur : 096 ms QT Int : 296 ms P-R-T Axes : 244 -34 -01 degrees QTc Int : 435 ms Atrial flutter with 2:1 A-V conduction Left axis deviation Inferior infarct , age undetermined Anterior infarct , age undetermined Abnormal ECG Confirmed by LINO JACK ([id number]), proposal editor BALDEMAR ARIAS ([id number]) on 05/28/2018 12:26:47 PM Referred By: Confirmed By:LINO JACK
--- NOTE | 2018-05-28 13:23 | PRG ---
DATE OF SERVICE: 05/28/2018 SUBJECTIVE: This is a 78-year-old gentleman, status post tPA, massive PE. Repeat echo was done, appears his ejection fraction 60% and his right ventricular cavity has decrease d in size. He is still getting Lovenox at 80 mg twice a day. OBJECTIVE: VITAL SIGNS: Sats are 92 on room air, respiration 20, temperature 97, blood pressure 135/75. CHEST: Decreased breath sounds without any wheezing. CARDIAC: Normal S1, S2. No gallops. ABDOMEN: Soft, no mass. IMPRESSION: 1. Pulmonary embolism. 2. Status post ventricular tachyarrhythmias. 3. Right leg deep venous thrombosis. PLAN: Continue Lovenox unless further intervention is planned. We will switch over to Eliquis.
[2018-05-29 05:52] LABS: #Eosinphils 0.4 thou/uL (0.0-0.7); #Lymphocytes 1.6 thou/uL (1.20-3.40); #Monocytes 0.6 thou/uL (0.11-0.59); #Neutrophils 4.2 thou/uL (1.40-6.50); %Basophils 0.3 % (0.0-1.0); %Eosinophils 5.4 % (0.0-10.0); %Lymphocytes 23.4 % (21.0-51.0); %Monocytes 8.7 % (0.0-10.0); %Neutrophils 62.2 % (42.0-75.0); Hemoglobin 10.1 g/dL (14.0-18.0); Mean Corpuscular HGB CONC 33.3 g/dL (32.0-36.0); Mean Platelet Volume 6.8 fL (7.4-10.4); Platelet Count 217 thou/uL (130-400); RBC Distribution Width 12.6 % (11.5-14.5); Red Blood Cell (RBC) Count 3.48 mill/uL (4.70-6.10); White Blood Cell (WBC) Count 6.7 thou/uL (4.8-10.8)
[2018-05-29 06:07] LABS: Anion Gap 10 mmol/L (10-20); BUN (Urea Nitrogen) 18 mg/dL (8.4-25.7); Calc. Creatinine Clearance 77 mL/min (70-130); Calcium 8.6 mg/dL (7.8-10.44); Carbon Dioxide 26 mmol/L (23-31); Chloride 106 mmol/L (98-107); Estimated GFR-MDRD 80; Glucose 97 mg/dL (83-110); Potassium 3.9 mmol/L (3.5-5.1); Sodium 138 mmol/L (136-145)
[2018-05-29] MEDS: Aspirin 81 mg Enteric Coated Tablet PO SCH (09:09)
[2018-05-29] MEDS: Docusate 100 MG CAP PO SCH ×2 (09:09→20:48)
[2018-05-29] MEDS: Gabapentin 100 MG CAP PO SCH ×2 (09:09→20:48)
[2018-05-29] MEDS: Enoxaparin Sodium 80 MG/0.8 ML SYRINGE SC SCH ×2 (09:09→20:48)
[2018-05-29] MEDS: Famotidine 20 MG TAB PO SCH ×2 (09:09→20:48)
[2018-05-29] MEDS: Multivit, Therapeutic 1 TAB PO SCH (09:09)
[2018-05-29] MEDS: Amiodarone 200 MG TAB PO SCH ×2 (09:09→20:48)
--- NOTE | 2018-05-29 09:50 | PDOC.CTH ---
Cardiology Progress Note - Subjective No complaints today. Up to chair and walking without difficulty. - Objective Vital Signs Temp Pulse Resp BP Pulse Ox 05/29/18 08:05 97.8 F 62 18 133/65 94 L 05/29/18 05:30 98 05/29/18 03:55 97.9 F 62 18 134/76 98 Weight 178 lb 7 oz 05/28/18 05/29/18 05/30/18 06:59 06:59 06:59 Intake Total 1440 240 Output Total 1375 1075 Balance 65 -835 - Physical Examination General/Neuro: alert & oriented x3 Lungs: CTA Heart: RRR Abdomen: NT/ND - Telemetry Telemetry Rhythm: SR - Labs Result Diagrams: 05/29/18 05:05 05/29/18 05:05 Troponin/CKMB CK-MB (CK-2) 2.2 ng/mL (0-6.6) 05/25/18 13:13 Troponin I 0.273 ng/mL (< 0.028) H 05/26/18 11:55 - Assessment/Plan 1. s/p PE and TPA 2. Sustained VT s/p DCCV 05/26. 3. AFlutter with RVR 4. HTN No changes to meds. Planned RFA AFlutter tomorrow. Currently on Lovenox. Plan for changing to NOAC at PE dosing post-op.
--- NOTE | 2018-05-29 12:05 | PDOC.PN ---
- Subjective Encounter Start Date: 05/29/18 Encounter Start Time: 12:03 Mr. Montes De Oca was seen today in follow-up of AFutter, and pulmonary embolus. He does not have any complaints. He denies chest pain or shortness of breath. - Objective Resuscitation Status: Resuscitation Status DNR:Do Not Resuscitate MAR Reviewed: Yes Vital Signs & Weight: Vital Signs (12 hours) Temp Pulse Resp BP Pulse Ox 05/29/18 08:05 97.8 F 62 18 133/65 94 L 05/29/18 05:30 98 05/29/18 03:55 97.9 F 62 18 134/76 98 Weight Weight 178 lb 7 oz Most Recent Monitor Data Heart Rate from ECG 55 NIBP 140/83 NIBP BP-Mean 102 Respiration from ECG 17 SpO2 100 I&O: 05/28/18 05/29/18 05/30/18 06:59 06:59 06:59 Intake Total 1440 240 Output Total 1375 1075 Balance 65 -835 Result Diagrams: 05/29/18 05:05 05/29/18 05:05 Phys Exam - Physical Examination HEENT: PERRLA Respiratory: no wheezing, no rales, no rhonchi, clear to auscultation bilateral Cardiovascular: RRR, no significant murmur, no rub occasional PVC Gastrointestinal: soft, non-tender, no distention, positive bowel sounds Musculoskeletal: no edema Dx/Plan (1) Atrial flutter Code(s): I48.92 - UNSPECIFIED ATRIAL FLUTTER Status: Acute (2) Acute saddle pulmonary embolism Code(s): I26.92 - SADDLE EMBOLUS OF PULMONARY ARTERY W/O ACUTE COR PULMONALE Status: Acute (3) Deep vein thrombosis, lower right extremity Code(s): I82.401 - ACUTE EMBOLISM AND THOMBOS UNSP DEEP VEINS OF R LOW EXTREM Status: Acute (4) Hypertension Code(s): I10 - ESSENTIAL (PRIMARY) HYPERTENSION Status: Chronic (5) Diabetes mellitus type 2 in nonobese Code(s): E11.9 - TYPE 2 DIABETES MELLITUS WITHOUT COMPLICATIONS Status: Chronic (6) Physical deconditioning Code(s): R53.81 - OTHER MALAISE Status: Acute - Plan * Atrial Flutter- he has converted to sinus . Plan is for RFA tomorrow. Continue Lovenox for now * Pulmonary Embolus- continue Lovenox, and will change to an oral DOAC after his procedure * HTN- blood pressure is stable. * DM- diet controlled, and stable * Deconditioning- continue PT
--- NOTE | 2018-05-29 12:43 | PRG ---
DATE OF SERVICE: 05/29/2018 SUBJECTIVE: This morning, he is awake, alert and responsive, no distress. OBJECTIVE: VITAL SIGNS: Sats are 94% on room air, respiratory rate 18, temperature 97, blood pressure is 133/65 . CHEST: No wheezing, no crackles. CARDIAC: Normal S1, S2. No gallops. ABDOMEN: No masses. LABORATORY: Labs normal. Platelet count is normal. IMPRESSION: Status post massive pulmonary embolism, deep venous thrombosis status post TPA, status p ost ventricular tachycardia. PLAN: Continue Lovenox. When okay with Cardiology, switch him over to Eliquis.
--- NOTE | 2018-05-29 17:25 | EKG ---
Test Reason : Blood Pressure : / mmHG Vent. Rate : 099 BPM Atrial Rate : 113 BPM P-R Int : 000 ms QRS Dur : 096 ms QT Int : 356 ms P-R-T Axes : 000 014 -32 degrees QTc Int : 456 ms Atrial fibrillation Possible Inferior infarct (cited on or before 25-MAY-2018) Abnormal ECG When compared with ECG of 25-MAY-2018 14:01, (Unconfirmed) Atrial fibrillation has replaced Atrial flutter Criteria for Anterior infarct are no longer Present ST no longer depressed in Inferior leads T wave inversion more evident in Inferior leads T wave inversion more evident in Anterior leads Confirmed by TREY SANCHEZ (2) on 05/29/2018 5:24:51 PM Referred By: LORRI Confirmed By:TREY SANCHEZ
--- NOTE | 2018-05-30 08:05 | PDOC.PN ---
- Subjective Encounter Start Date: 05/30/18 Encounter Start Time: 08:03 Mr. Montes De Oca was seen today in follow-up of Atrial Flutter and PE. He does not have any complaints. He denies chest pain or shortness of breath. - Objective Resuscitation Status: Resuscitation Status DNR:Do Not Resuscitate MAR Reviewed: Yes Vital Signs & Weight: Vital Signs (12 hours) Temp Pulse Resp BP Pulse Ox 05/30/18 04:00 98.2 F 64 12 112/62 96 Weight Weight 180 lb 12.8 oz Most Recent Monitor Data Heart Rate from ECG 55 NIBP 140/83 NIBP BP-Mean 102 Respiration from ECG 17 SpO2 100 I&O: 05/29/18 05/30/18 05/31/18 06:59 06:59 06:59 Intake Total 240 770 Output Total 1075 950 Balance -835 -180 Result Diagrams: 05/29/18 05:05 05/29/18 05:05 Phys Exam - Physical Examination HEENT: PERRLA Respiratory: no wheezing, no rales, no rhonchi, clear to auscultation bilateral Cardiovascular: RRR, no significant murmur, no rub no gallop Gastrointestinal: soft, non-tender, no distention, positive bowel sounds Musculoskeletal: no edema Dx/Plan (1) Atrial flutter Code(s): I48.92 - UNSPECIFIED ATRIAL FLUTTER Status: Acute (2) Acute saddle pulmonary embolism Code(s): I26.92 - SADDLE EMBOLUS OF PULMONARY ARTERY W/O ACUTE COR PULMONALE Status: Acute (3) Deep vein thrombosis, lower right extremity Code(s): I82.401 - ACUTE EMBOLISM AND THOMBOS UNSP DEEP VEINS OF R LOW EXTREM Status: Acute (4) Hypertension Code(s): I10 - ESSENTIAL (PRIMARY) HYPERTENSION Status: Chronic (5) Diabetes mellitus type 2 in nonobese Code(s): E11.9 - TYPE 2 DIABETES MELLITUS WITHOUT COMPLICATIONS Status: Chronic (6) Physical deconditioning Code(s): R53.81 - OTHER MALAISE Status: Acute - Plan * AFlutter- plan is for RFA today. * Pulmonary embolus- Lovenox is on hold this morning due to the planned procedure. Will need to start an oral anticoagulant following the procedure * HTN - blood pressure is well controlled * DM- blood glucose is stable.
[2018-05-30] MEDS: Famotidine 20 MG TAB PO SCH ×2 (11:08→21:38)
[2018-05-30] MEDS: Multivit, Therapeutic 1 TAB PO SCH (11:09)
[2018-05-30] MEDS: Aspirin 81 mg Enteric Coated Tablet PO SCH (11:09)
[2018-05-30] MEDS: Docusate 100 MG CAP PO SCH ×2 (11:09→21:38)
[2018-05-30] MEDS: Amiodarone 200 MG TAB PO SCH ×2 (11:09→21:38)
[2018-05-30] MEDS: Gabapentin 100 MG CAP PO SCH ×2 (11:10→21:38)
[2018-05-30] MEDS: Enoxaparin Sodium 80 MG/0.8 ML SYRINGE SC SCH (11:29)
--- NOTE | 2018-05-30 12:21 | PRG ---
DATE OF SERVICE: 05/30/2018 SUBJECTIVE: Mr. Lebron seems to be doing well. He is not having any new cardiac issues. OBJECTIVE: VITAL SIGNS: Blood pressure is 140/83, heart rate 55, respiration is 17. The patient is afebrile. GENERAL: He is alert and oriented man in no apparent distress. NECK: Supple. Jugular veins not distended. CHEST: Coarse without crackles. CARDIOVASCULAR: Heart sounds are regular to rate and rhythm. No murmur or gallop. ABDOMEN: Benign. Bowel sounds positive. EXTREMITIES: Lower extremities with no edema, clubbing or cyanosis. Telemetry strips reviewed revealing sinus rhythm, no atrial fibrillation/flutter or VT is noted. LABORATORY DATA: Lab data from the weekend reviewed, significant for mild anemia, 10.1 ASSESSMENT AND PLAN: Mr. Lebron is a pleasant 78-year-old man who presented with atrial flutter, but was also found to have an acute central pulmonary embolism, likely that was thrombolyzed and he r ecovered well. No significant deep venous thrombus was still residual in lower extremities. He also had short nonsustained VT in the acute phase of the pulmonary embolism which is likely due to RV stretch which was excessively dilated. He was receiving IV amiodarone, which also converted him back to sinus rhythm. Apart from a short episode yesterday he is maintaining sinus rhythm. PLAN: My plan would be at this point: 1. Continue amiodarone taper p.o. 200 mg twice a day for next 2 weeks and consider reducing it to 10 0 mg daily after that. Monitor for bradycardia. 2. Initial plans for the atrial flutter for now postponed, we could consider ablation maybe in 3 wed as an outpatient if at which point amiodarone, likely could be discontinued. 3. Currently, the patient is anticoagulated with Lovenox which should be likely switched to one of t he novel anticoagulant agents like Xarelto 20 versus Eliquis 5 twice a day at the primary team's disc retion.
--- NOTE | 2018-05-30 15:07 | PDOC.CTH ---
Cardiology Progress Note - Subjective pt. seen and eval. no new complaints. No SOB or chest pain. - Objective Vital Signs Temp Pulse Resp BP BP BP BP 05/30/18 11:19 97.7 F 64 16 145/82 H 147/52 H 124/72 05/30/18 08:41 98 F 70 14 129/76 05/30/18 08:40 05/30/18 04:00 98.2 F 64 12 112/62 Pulse Ox 05/30/18 11:19 98 05/30/18 08:41 96 05/30/18 08:40 96 05/30/18 04:00 96 Weight 180 lb 12.8 oz 05/29/18 05/30/18 05/31/18 06:59 06:59 06:59 Intake Total 240 770 Output Total 1075 950 Balance -835 -180 - Physical Examination General/Neuro: alert & oriented x3 Neck: carotid US brisk Lungs: CTA Heart: RRR Abdomen: no HSM, NT/ND Other PE findings: - no edema. - Labs Result Diagrams: 05/29/18 05:05 05/29/18 05:05 Troponin/CKMB CK-MB (CK-2) 2.2 ng/mL (0-6.6) 05/25/18 13:13 Troponin I 0.273 ng/mL (< 0.028) H 05/26/18 11:55 - Assessment/Plan 1. s/p PE. continue lovenox. switch to Xarelto. 2. Atrial flutter. Now in NSR. He will f/u with Dr. Lincoln for possible flutter ablation in 3 months. The pt. will f/u with me in 2-4 weeks and we can schedule a stress test. he is stable from a cardiac standpoint and I will sign off.
--- NOTE | 2018-05-30 20:47 | EKG ---
Test Reason : Blood Pressure : / mmHG Vent. Rate : 111 BPM Atrial Rate : 111 BPM P-R Int : 000 ms QRS Dur : 100 ms QT Int : 326 ms P-R-T Axes : 000 030 077 degrees QTc Int : 443 ms Poor data quality, interpretation may be adversely affected Sinus tachycardia with occasional , and consecutive Premature ventricular complexes and Fusion comple xes Incomplete right bundle branch block Possible Inferior infarct (cited on or before 25-MAY-2018) Marked ST abnormality, possible lateral subendocardial injury Abnormal ECG When compared with ECG of 25-MAY-2018 18:46, Significant changes have occurred Confirmed by TREY SANCHEZ (2) on 05/30/2018 8:46:49 PM Referred By: Confirmed By:TREY SANCHEZ
[2018-05-30] MEDS: Rivaroxaban 15 MG TAB PO SCH (21:38)
[2018-05-31 07:32] VITALS: TEMP 98.1
[2018-05-31] MEDS: Famotidine 20 MG TAB PO SCH (08:13)
[2018-05-31] MEDS: Rivaroxaban 15 MG TAB PO SCH (08:13)
[2018-05-31] MEDS: Multivit, Therapeutic 1 TAB PO SCH (08:14)
[2018-05-31] MEDS: Amiodarone 200 MG TAB PO SCH (08:14)
[2018-05-31] MEDS: Gabapentin 100 MG CAP PO SCH (08:14)
[2018-05-31] MEDS: Aspirin 81 mg Enteric Coated Tablet PO SCH (08:14)
[2018-05-31] MEDS: Docusate 100 MG CAP PO SCH (08:14)
[2018-05-31 09:21] VITALS: BP 128/68
--- NOTE | 2018-05-31 10:01 | PDOC.PN ---
- Subjective Encounter Start Date: 05/31/18 Encounter Start Time: 09:59 Mr. Montes De Oca was seen today in follow-up of AFIB. and PE. He does not have any complaints. - Objective Resuscitation Status: Resuscitation Status DNR:Do Not Resuscitate MAR Reviewed: Yes Vital Signs & Weight: Vital Signs (12 hours) Temp Pulse Resp BP BP BP BP 05/31/18 09:04 102 H 128/68 05/31/18 09:02 89 137/77 05/31/18 09:00 82 139/69 05/31/18 08:00 05/31/18 07:30 98.1 F 76 18 155/73 H 05/31/18 04:00 97.8 F 70 16 124/72 Pulse Ox 05/31/18 09:04 05/31/18 09:02 05/31/18 09:00 05/31/18 08:00 92 L 05/31/18 07:30 98 05/31/18 04:00 98 Weight Weight 180 lb 8 oz Most Recent Monitor Data Heart Rate from ECG 55 NIBP 140/83 NIBP BP-Mean 102 Respiration from ECG 17 SpO2 100 I&O: 05/30/18 05/31/18 06/01/18 06:59 06:59 06:59 Intake Total 770 820 Output Total 950 1080 Balance -180 -260 Result Diagrams: 05/29/18 05:05 05/29/18 05:05 Phys Exam - Physical Examination HEENT: PERRLA Respiratory: no wheezing, no rales, no rhonchi, clear to auscultation bilateral Cardiovascular: RRR, no significant murmur, no rub Gastrointestinal: soft, non-tender, no distention, positive bowel sounds Musculoskeletal: no edema chronic venous stasis changes Dx/Plan (1) Atrial flutter Code(s): I48.92 - UNSPECIFIED ATRIAL FLUTTER Status: Acute (2) Acute saddle pulmonary embolism Code(s): I26.92 - SADDLE EMBOLUS OF PULMONARY ARTERY W/O ACUTE COR PULMONALE Status: Acute (3) Deep vein thrombosis, lower right extremity Code(s): I82.401 - ACUTE EMBOLISM AND THOMBOS UNSP DEEP VEINS OF R LOW EXTREM Status: Acute (4) Hypertension Code(s): I10 - ESSENTIAL (PRIMARY) HYPERTENSION Status: Chronic (5) Diabetes mellitus type 2 in nonobese Code(s): E11.9 - TYPE 2 DIABETES MELLITUS WITHOUT COMPLICATIONS Status: Chronic (6) Physical deconditioning Code(s): R53.81 - OTHER MALAISE Status: Acute - Plan * Atrial flutter- he is still in sinus. The RFA was cancelled. He will continue on Amiodarone * PE- have changed him to Xarelto * Stable for discharge home..
--- NOTE | 2018-05-31 11:12 | PQF ---
CLINICAL DOCUMENTATION IMPROVEMENT CLARIFICATION FORM: ICD-10 Updated PLEASE DO AN ADDENDUM TO THE PROGRESS NOTE WITH ANY DOCUMENTATION UPDATES OR ADDITIONS AND CARRY THROUGH TO DC SUMMARY. THANK YOU. DATE: 05/31/18 ATTN: Dr. Chilel Please exercise your independent, professional judgment in responding to the clarification form. Clinical indicators are provided on the bottom of this form for your review Please check appropriate box(s): Conflicting documentation was noted in the Medical Record, please clarify if patient is being treated/monitored for: [ ] Saddle embolus of pulmonary artery with acute cor pulmonale [ X ] Saddle embolus of pulmonary artery without acute cor pulmonale [ ] Other diagnosis [ ] Unable to determine In addition, please specify: Present on Admission (POA): [X ] Yes [ ] No [ ] Unable to determine For continuity of documentation, please document condition throughout progress notes and discharge summary. Thank You. CLINICAL INDICATORS - SIGNS / SYMPTOMS/ LABS PN 05/27: SUBMASSIVE PULMONARY EMBOLISM WITH COR PULMONALE & DEEP VEIN THROMBOSIS. PN 05/28-05/30: ACUTE SADDLE PULMONARY EMBOLUS. SADDLE EMBOLUS OF PULMONARY ARTERY W/O ACUTE COR PULMONALE. ACUTE. EP PN 05/26: 2D ECHO REVEALED MARKED DILATION OF THE RIGHT VENTRICLE CT SCAN REVEALS A MASSIVE SADDLE EMBOLUS, EXTENSIVE EMBOLI EXTENDING INTO THE UPPER AND LOWER PULMONARY ARTERIES RISKS: H&P 05/25: NEW ONSET ATRIAL FLUTTER WITH RVR. WEAKNESS, DIZZINESS, EXERTIONAL SOB. ROEBRT ON CKD 2, ELEVATED TROPONINS, PROBABLY 2/2 DEMAND ISCHEMIA. DM 2. TREATMENT: MEDICATION: ALTEPLASE, RECOMBINANT 100MG IV NOW 05/26 Thank you, Karen (This form is maintained as a part of the permanent medical record) 2014 [employer]. All Rights Reserved Karen Mccoy RN, [email or web address] Office: [phone] [facility]
--- NOTE | 2018-05-31 13:21 | DIS ---
DATE OF ADMISSION: 05/25/2018 DATE OF DISCHARGE: 05/31/2018 PRIMARY CARE PHYSICIAN: Mabel Tran M.D. DISCHARGE DISPOSITION: Home. PRIMARY DISCHARGE DIAGNOSES: 1. Atrial flutter. 2. Pulmonary embolism. 3. Hypertension. 4. Diabetes mellitus, type 2. DISCHARGE MEDICATIONS: Include amiodarone 200 mg twice a day for 2 weeks followed by 100 mg daily, X arelto 15 mg twice a day for 3 weeks, followed by 20 mg daily, aspirin 81 mg daily, potassium 10 mEq daily, lisinopril/hydrochlorothiazide 1 tablet daily, and gabapentin 100 mg twice a day. PROCEDURES DONE DURING ADMISSION: The patient had a CT angiogram of the chest which demonstrated a m assive saddle embolism. The patient also had an echocardiogram in which the ejection fraction was es timated at 60%. There was severely enlarged right ventricular cavity. The left atrium was markedly dilated. There was markedly enlarged right atrial size. The patient had a lower extremity venous Do ppler showing a partial thrombus in the mid to distal right superficial femoral vein and complete occ lusion of the right popliteal vein. CODE STATUS: DNR. ALLERGIES: No known drug allergies. HOSPITAL COURSE: Mr. Lebron is a pleasant 78-year-old gentleman who presented to the emergency ro om initially with complaints of feeling weak and lightheaded. He was found to be in atrial flutter w ith rapid ventricular response. He was given digoxin and Cardizem in the ER and placed on a Cardizem drip and admitted. The following day, the patient was doing well until he had an episode of ventric ular tachycardia, which was then followed by a supraventricular tachycardia. He converted out of the spontaneously, but was sent down for CT given the change in status and he was found to have a massiv e pulmonary embolism. He was started on anticoagulation. He was evaluated by Cardiology with regard s to the atrial flutter. He was seen by Electrophysiology and he was initially considered for radiof requency ablation; however, later this was canceled. He was placed on amiodarone and has been in sin us rhythm since. He will also be placed on Xarelto with regards to the pulmonary embolism. He has b een stabilized and will be discharged home today with close outpatient Cardiology followup.
== END 2018-05-31 11:34 | disposition home or self-care (01) | DRG 308 ==
LOC: ERS 12:29 → ERHOLD 15:02 → 2SE 16:08 → CCU 05-26 13:38 → 2NO 05-27 18:26
PROVIDERS: ADMIT Internal Medicine; ATTEND Internal Medicine
DX: I48.92 Unspecified atrial flutter (principal); J96.01 Acute respiratory failure with hypoxia; I26.92 Saddle embolus of pulmonary artery without acute cor pulmonale; N17.9 Acute kidney failure, unspecified; I24.8 Other forms of acute ischemic heart disease; E87.2 Acidosis; E87.1 Hypo-osmolality and hyponatremia; I82.402 Acute embolism and thrombosis of unspecified deep veins of left lower extremity; I13.0 Hypertensive heart and chronic kidney disease with heart failure and stage 1 through stage 4 chronic kidney disease, or unspecified chronic kidney disease; I48.91 Unspecified atrial fibrillation; E11.40 Type 2 diabetes mellitus with diabetic neuropathy, unspecified; Z79.899 Other long term (current) drug therapy; Z87.891 Personal history of nicotine dependence; D64.9 Anemia, unspecified; I50.810 Right heart failure, unspecified; Z66 Do not resuscitate; M54.9 Dorsalgia, unspecified; G89.29 Other chronic pain; N18.2 Chronic kidney disease, stage 2 (mild); E11.22 Type 2 diabetes mellitus with diabetic chronic kidney disease; E83.42 Hypomagnesemia
CPT/HCPCS: 36415; 36416; 71045; 71275; 80048; 80053; 80162; 82550; 82553; 83605; 83735; 83880; 84100; 84443; 84484; 85025; 87040; 93005; 93010; 93306; 93970; 94760; 96361; 96372; 96374; 96375; 96376; G8978-GP-CK; G8978-GP-CL; G8979-GP-CI; G8979-GP-CJ; J0282; J1160; J1650; J2997; J3475; J7050; J7070